=== PATIENT | male | born 1945 | race Caucasian/White ===

== ENCOUNTER 2021-05-24 20:11 | Inpatient (IN) | payer MEDICARE, OTHER ==
[~2021-05-24] VITALS: Ht 167.6 cm; Wt 64.6 kg
--- NOTE | 2021-05-24 20:15 | NUR ---
Pt BIB [facility] ambulance unit 265 from [facility] for c/o genaralized body pain since this AM, given norco at 1800 today. No SOB or labored breathing, afebrile. Denies CP/pressure. No GI/ distress. Estonian speaking.
--- NOTE | 2021-05-24 20:16 | NUR ---
Dr. Cordova at bedside, MSE in progress.
[2021-05-24 21:04] LABS: CREATININE 0.8 mg/dL (0.6-1.3); POTASSIUM 4.3 mmol/L (3.5-5.1)
[2021-05-24 21:24] LABS: BILIRUBIN,DIRECT 0.2 mg/dL (0.0-0.2); BILIRUBIN,TOTAL 0.5 mg/dL (0.2-1.0); TOTAL PROTEIN, SERUM 5.9 g/dL (6.4-8.2)
[2021-05-24] MEDS ORDERED: HALOPERIDOL LACTATE 5 MG/1 ML VIAL IM ONE (22:15)
[2021-05-24] MEDS ORDERED: LORAZEPAM 2 MG/1 ML VIAL IM ONE (22:15)
[2021-05-24] MEDS ORDERED: LORAZEPAM 2 MG/1 ML VIAL ONE (22:30)
[2021-05-24] MEDS ORDERED: HALOPERIDOL LACTATE 5 MG/1 ML VIAL ONE (22:30)
[2021-05-24] MEDS ORDERED: FURO20TA4 PO (23:11)
[2021-05-24] MEDS ORDERED: POTA20TA83 PO (23:11)
[2021-05-24] MEDS ORDERED: TAMS-3 PO (23:11)
[2021-05-24] MEDS ORDERED: TEMA15CA PO (23:11)
[2021-05-24] MEDS ORDERED: LISI40TA13 PO (23:11)
[2021-05-24] MEDS ORDERED: HYDR-3972 PO (23:11)
[2021-05-24] MEDS ORDERED: CARV12.52 PO (23:11)
[2021-05-24] MEDS ORDERED: APIX5TAB PO (23:11)
[2021-05-24] MEDS ORDERED: PANT40TA2 PO (23:11)
[2021-05-24] MEDS ORDERED: ZINC220T4 PO (23:11)
[2021-05-24] MEDS ORDERED: THIA100T13 PO (23:11)
[2021-05-24 23:44] LABS: HEMATOCRIT 28.2 % (36.7-47.1); MEAN CORPUSCULAR HEMOGLOBIN 24.2 uug (23.8-33.4); MEAN CORPUSCULAR VOLUME 81.3 fL (73.0-96.2); PLATELET COUNT (AUTO) 187 K/uL (152-348)
--- NOTE | 2021-05-24 23:52 | NUR ---
Patient is resting comfortably in bed with eyes closed. VSS. bed in lowest positiong for safety precautions.
--- NOTE | 2021-05-25 00:27 | NUR ---
PT TAKEN DOWN FOR CT.
--- NOTE | 2021-05-25 00:55 | NUR ---
PT RETURNED FROM CT, STABLE CONDITION.
[2021-05-25] MEDS ORDERED: FUROSEMIDE 40 MG/4 ML VIAL IV ONE (01:00)
[2021-05-25] MEDS ORDERED: FUROSEMIDE 40 MG/4 ML VIAL ONE (01:16)
[2021-05-25 01:31] LABS: *BILIRUBIN,URIN NEGATIVE (NEGATIVE); *CLARITY,URINE CLEAR (CLEAR); *COLOR,URINE YELLOW (YELLOW); *KETONES,URINE NEGATIVE (NEGATIVE); *UROBILINOGEN,URINE 0.2 E.U./dl (NORMAL); LEUKOCYTE ESTERASE ,URINE TRACE (NEGATIVE); NITRITE, URINE NEGATIVE (NEGATIVE); UGLUCOSE NEGATIVE (NEGATIVE)
[2021-05-25 01:33] LABS: *BLOOD, URINE TRACE (NEGATIVE)
[2021-05-25 01:34] LABS: BACTERIA,URINE NONE SEEN /HPF (NONE SEEN); RBC,URINE 0-3 /HPF (0-3); SQUAMOUS EPITHELIAL CELL,UR FEW /HPF (NONE SEEN); WBC,URINE 0-3 /HPF (0-3)
--- NOTE | 2021-05-25 02:47 | NUR ---
Patient is resting comfortably in bed with eyes closed. VSS. Breathing even and unlabored.
--- NOTE | 2021-05-25 03:39 | NUR ---
Gave report to raisa Nguyen going to room 301A.
--- NOTE | 2021-05-25 04:50 | NUR ---
Pt. admitted to tele room 301A , under care of Dr. Merchant Dx: CHF Belongs List completed
[2021-05-25 05:36] VITALS: BP 142/73
[2021-05-25] MEDS ORDERED: TEMAZEPAM 15 MG CAPSULE PO PRN (06:15)
[2021-05-25] MEDS ORDERED: ACETAMINOPHEN 325 MG TABLET PO PRN (06:15)
[2021-05-25] MEDS ORDERED: ONDANSETRON 4 MG/2 ML VIAL IV PRN (06:15)
--- NOTE | 2021-05-25 06:43 | NUR ---
Admitted to room 301A; IV not working; multiple unsuccessful attempts by ER staff in room; DR Osorio placed orders; order for Midline; wound care done; WCRN rozina ordered.
--- NOTE | 2021-05-25 08:00 | NUR ---
received asleep, name called , woke up but instantly closed eyes, no IV access at this time- will fiind out with supervisor transcribing operators ETA of midline nurse, on /- no distress noted, call light within reach, safety measures maintained
[2021-05-25] MEDS: POTASSIUM CHLORIDE 20 MEQ TAB.PRT.SR PO SCH ×2 (08:19→17:08)
[2021-05-25] MEDS: CARVEDILOL 12.5 MG TABLET PO SCH ×2 (08:19→17:09)
[2021-05-25] MEDS: LISINOPRIL 20 MG TABLET PO SCH (08:19)
[2021-05-25] MEDS: PANTOPRAZOLE SODIUM 40 MG TABLET.DR PO SCH (08:19)
[2021-05-25] MEDS: THIAMINE HCL 100 MG TABLET PO SCH (08:19)
[2021-05-25] MEDS: ZINC SULFATE 220 MG CAPSULE PO SCH (08:20)
[2021-05-25] MEDS: APIXABAN 5 MG TABLET PO SCH ×2 (08:21→17:09)
--- NOTE | 2021-05-25 08:30 | NUR ---
Dr Styles here. left groin wound with dsg- with drainage, left above knee amputee
[2021-05-25] MEDS ORDERED: VANCOMYCIN IV 750 MG in IV DEXTROSE 5% 250 ML IV SCH (10:00)
[2021-05-25] MEDS ORDERED: Z GUARD REMEDY PASTE 57 GM TUBE TOP PRN (10:15)
[2021-05-25] MEDS ORDERED: PIPERACILLIN SODIUM/TAZOBACTAM 3.375 G in IV DEXTROSE 5% 50 ML IV SCH (11:00)
--- NOTE | 2021-05-25 11:00 | NUR ---
midline nurse here and placed g20 midline on right upper arm
[2021-05-25] MEDS: FUROSEMIDE 40 MG/4 ML VIAL IV SCH (11:02)
[2021-05-25] MEDS: VANCOMYCIN IV 750 MG in IV DEXTROSE 5% 250 ML IV SCH ×2 (11:05→18:24)
--- NOTE | 2021-05-25 11:30 | NUR ---
called lab and inquired about labs ordered for this am- informed that pt refused blood draw, talked to pt and blood drawn for am labs
[2021-05-25 12:00] VITALS: BP 122/53
[2021-05-25 12:08] LABS: HEMATOCRIT 27.7 % (36.7-47.1); MEAN CORPUSCULAR HEMOGLOBIN 25.1 uug (23.8-33.4); MEAN CORPUSCULAR VOLUME 82.8 fL (73.0-96.2); PLATELET COUNT (AUTO) 173 K/uL (152-348)
[2021-05-25 12:11] LABS: CREATININE 0.8 mg/dL (0.6-1.3); POTASSIUM 3.6 mmol/L (3.5-5.1)
[2021-05-25] MEDS: PIPERACILLIN SODIUM/TAZOBACTAM 3.375 G in IV DEXTROSE 5% 50 ML IV SCH ×2 (12:20→17:11)
[2021-05-25 12:29] LABS: BILIRUBIN,TOTAL 0.6 mg/dL (0.2-1.0); MAGNESIUM 1.9 mg/dL (1.8-2.4); PHOSPHOROUS 3.3 mg/dL (2.5-4.9); TOTAL PROTEIN, SERUM 5.7 g/dL (6.4-8.2)
--- NOTE | 2021-05-25 13:00 | NUR ---
informed of trop0.040- orders given
[2021-05-25 14:11] LABS: THYROID STIMULATING HORMONE 10.457 mIU/mL (0.358-3.740)
[2021-05-25 16:00] VITALS: BP 135/49
--- NOTE | 2021-05-25 18:34 | NUR ---
visitor at bedside, no distress noted, on 2l 02, no shortness of breath noted, head of bed elevated, all needs attended and met, safety mesures maintained, call light within reach
[2021-05-25 20:00] VITALS: BP 121/50
[2021-05-25] MEDS: TAMSULOSIN HCL 0.4 MG CAP.SR.24H PO SCH (20:06)
--- NOTE | 2021-05-25 21:17 | NUR ---
Pt has an order for troponin STAT. Multiple attempts made to draw blood by lab and staff, unable to get blood sample. Pt keeps on refusing too. aware. will continue to monitor.
[2021-05-26] VITALS: BP 107/50
[2021-05-26] MEDS: PIPERACILLIN SODIUM/TAZOBACTAM 3.375 G in IV DEXTROSE 5% 50 ML IV SCH ×5 (00:05→23:45)
[2021-05-26] MEDS: TEMAZEPAM 15 MG CAPSULE PO PRN ×2 (00:20→21:37)
[2021-05-26] MEDS: VANCOMYCIN IV 750 MG in IV DEXTROSE 5% 250 ML IV SCH ×3 (03:00→18:06)
--- NOTE | 2021-05-26 03:42 | NUR ---
IV antibiotics not administered due to no IV access. Pt pulled his JUSTIN midline. Multiple attempts made to re-insert new IV access. Still unsuccessful. Pt keeps on refusing IV insertions as well. aware.
[2021-05-26 04:00] VITALS: BP 130/54
--- NOTE | 2021-05-26 06:38 | NUR ---
No signs of respiratory distress noted through the night. Tolerated oral medications. Repositioning done as needed. Pt still refusing IV insertions. Stool sample sent to Lab for stool OB. All needs attended and met.
--- NOTE | 2021-05-26 08:00 | NUR ---
asleep on rounds but arouses easily, on 2l/nc no shortness of breath noted, refused to eat and vs taken at this time, offered breakfast but states "out, out", safety measures maintained, call light within reach
[2021-05-26] MEDS: PANTOPRAZOLE SODIUM 40 MG TABLET.DR PO SCH (08:39)
[2021-05-26] MEDS: POTASSIUM CHLORIDE 20 MEQ TAB.PRT.SR PO SCH ×2 (08:39→17:35)
[2021-05-26] MEDS: THIAMINE HCL 100 MG TABLET PO SCH (08:39)
[2021-05-26] MEDS: ZINC SULFATE 220 MG CAPSULE PO SCH (08:39)
[2021-05-26] MEDS: APIXABAN 5 MG TABLET PO SCH ×2 (08:40→17:35)
--- NOTE | 2021-05-26 08:40 | NUR ---
convinced to take breakfast and meds - complied, still no IV access, lasix IV unable to give, awaiting for midline RN
[2021-05-26] MEDS: LISINOPRIL 20 MG TABLET PO SCH (08:44)
[2021-05-26] MEDS: CARVEDILOL 12.5 MG TABLET PO SCH ×2 (08:44→17:00)
--- NOTE | 2021-05-26 10:00 | NUR ---
called mails supervisor re midline- to let me know when he's coming
--- NOTE | 2021-05-26 11:00 | NUR ---
refused am lab draw
[2021-05-26 12:00] VITALS: BP 122/68
[2021-05-26 12:33] LABS: *OCCULT BLOOD STOOL NEGATIVE (NEGATIVE)
--- NOTE | 2021-05-26 14:30 | NUR ---
midline placed by midline RN on left upper arm G20, iv meds given thereafter
[2021-05-26] MEDS: FUROSEMIDE 40 MG/4 ML VIAL IV SCH (14:32)
[2021-05-26 17:20] VITALS: BP 99/56
--- NOTE | 2021-05-26 18:00 | NUR ---
iv zosyn ivpb not given- was administered at 1616- too close to give
--- NOTE | 2021-05-26 19:30 | NUR ---
Received pt in bed, awake and verbally responsive. On oxygen at 2LPM, no signs of respiratory distress. Denies any pain or discomfort. IV access on HALIMA midline, intact and patent. Repositioned comfortably in bed, safety measures initiated, call light within reach.
[2021-05-26] MEDS: TAMSULOSIN HCL 0.4 MG CAP.SR.24H PO SCH (20:21)
[2021-05-26 20:33] VITALS: BP 100/76
[2021-05-27 00:39] VITALS: BP 109/49
--- NOTE | 2021-05-27 01:19 | NUR ---
Pt pulled out his IV midline and has been refusing IV insertions. Removes his tele leads and gets agitated more when approached. Notified Dr. Merchant and received an order to hold IV abx tonight, let regular doctor decide in AM and to DC telemetry. will continue to monitor.
[2021-05-27] MEDS: HYDROCODONE/APAP 5-325MG TABLET PO PRN (02:02)
[2021-05-27] MEDS: VANCOMYCIN IV 750 MG in IV DEXTROSE 5% 250 ML IV SCH ×4 (03:00→23:09)
[2021-05-27 04:32] VITALS: BP 112/50
[2021-05-27] MEDS: PIPERACILLIN SODIUM/TAZOBACTAM 3.375 G in IV DEXTROSE 5% 50 ML IV SCH ×3 (06:00→18:00)
--- NOTE | 2021-05-27 06:18 | NUR ---
Pt slept intermittently, occasional screaming noted but able to console. Pt is a fall risk. Tries to get out of bed most of the time. Bed alarm on at all times, close monitoring done as needed. Notified Dr. Merchant and received an order of Zyprexa 2.5 mg IM but unable to administer due to pt being calmer now and currently asleep. Dr. Merchant is aware. Pt still with no IV access. Tolerated PO medications. All needs attended to and met.
[2021-05-27 06:43] LABS: HEMATOCRIT 24.3 % (36.7-47.1); MEAN CORPUSCULAR HEMOGLOBIN 25.2 uug (23.8-33.4); MEAN CORPUSCULAR VOLUME 82.5 fL (73.0-96.2); PLATELET COUNT (AUTO) 143 K/uL (152-348)
[2021-05-27 07:08] LABS: CREATININE 1.2 mg/dL (0.6-1.3); MAGNESIUM 1.9 mg/dL (1.8-2.4); PHOSPHOROUS 2.4 mg/dL (2.5-4.9); POTASSIUM 3.7 mmol/L (3.5-5.1)
--- NOTE | 2021-05-27 07:30 | NUR ---
Received report from VENICE Byrd. All questions, comments, and concerns were addressed. Received patient awake, alert and oriented to name only in his assigned bed. Bed is in low and locked position with bed alarm on. Patient on IVAN mattress. Respirations even and unlabored, no signs of respiratory distress noted.
[2021-05-27] MEDS: FUROSEMIDE 40 MG/4 ML VIAL IV SCH (09:00)
[2021-05-27] MEDS: APIXABAN 5 MG TABLET PO SCH ×2 (09:00→16:56)
[2021-05-27] MEDS: PANTOPRAZOLE SODIUM 40 MG TABLET.DR PO SCH (09:00)
[2021-05-27] MEDS: ZINC SULFATE 220 MG CAPSULE PO SCH (09:00)
[2021-05-27] MEDS: POTASSIUM CHLORIDE 20 MEQ TAB.PRT.SR PO SCH ×2 (09:00→16:56)
[2021-05-27] MEDS: THIAMINE HCL 100 MG TABLET PO SCH (09:00)
[2021-05-27] MEDS: LISINOPRIL 20 MG TABLET PO SCH (09:00)
[2021-05-27] MEDS: CARVEDILOL 12.5 MG TABLET PO SCH ×2 (09:00→16:56)
--- NOTE | 2021-05-27 11:23 | NUR ---
WOUND CARE CONSULT: PT PRESENTS WITH RASH TO SCROTUM, PERINEAL AREAS, RT CHEST AREA SUTURE AND LEFT GROIN PURULENT WOUNDS, PRESENT ON ADMISSION. SURGICAL CONSULT CALLED TO DR BARONE. RECOMMENDATIONS MADE FOR SKIN PROTECTION. DISCUSSED WITH NURSING STAFF. PT IS MOVING ABOUT IN BED. FIRST STEP LOW AIRLOSS MATTRESS DISCONTINUED FOR PT SAFETY. MD IN AGREEMENT WITH PLAN OF CARE.
[2021-05-27 12:00] VITALS: BP 92/58
--- NOTE | 2021-05-27 12:20 | NUR ---
Received Critical Lab result for Hemoglobin 7.4. Dr. Max Purvis [employer] notified, also notified that patient has orders for a midline catheter placement due to pulling out the previous one. Orders received for medical restraints after midline is placed. Currently, unable to administer scheduled IV ATB therapy due to patient being noncompliant. Patient has also been refusing all PO medications today. Patient states "no!" and waves his hand for this commercial underwriter to go away. Patient is noncompliant with treatment and is refusing to participate in education and reality orientation. Patient seen by wound nurse. IVAN mattress discontinued, diaper removed due to fungal rash in groin and recommended condom catheter, and orders placed for consult with surgical team for drainage coming from left thigh wound. Wound cleansed and covered with nonsterile gauze and tape. Patient noted with Left AKA, healed.
[2021-05-27 15:37] LABS: EOSINOPHILS % (MANUAL) 1 % (0-8); LYMPHOCYTES % (MANUAL) 3 % (20-40); MONOCYTES % (MANUAL) 7 % (2-10); NEUTROPHILS % (MANUAL) 89 % (42-75)
[2021-05-27 16:00] VITALS: BP 132/56
[2021-05-27] MEDS ORDERED: NEUTRA PHOS PACKET PO ONE (16:30)
--- NOTE | 2021-05-27 16:58 | NUR ---
Patient refusing scheduled PO medications. Patient provided with education about importance of medication adherence but patient refusing to participate in education. Screaming words in Colombian at this policy writer and is demanding, irritable, and angry.
[2021-05-27] MEDS: CLOTRIMAZOLE 1% CREAM 30 GM TUBE TOP SCH (17:30)
--- NOTE | 2021-05-27 18:40 | NUR ---
Condom catheter placed on patient to help with skin management and healing of fungal rash in groin area. Patient instructed not to remove and provided with education about reason for placement. Patient pulled condom catheter off x2. Screaming and yelling at staff. Patient is angry. Patient unable to participate in education due to confusion and disorientation.
[2021-05-27 19:48] VITALS: BP 181/74
[2021-05-27] MEDS: TAMSULOSIN HCL 0.4 MG CAP.SR.24H PO SCH (20:01)
--- NOTE | 2021-05-27 20:02 | NUR ---
Unable to administer IV meds due to no IV access. scenic arts supervisor to f/u with PICC/midline team. Patient also refusing PO meds at this time. Very restless and agitated, frequent reorientation provided.
[2021-05-27] MEDS ORDERED: VANCOMYCIN IV 750 MG in IV DEXTROSE 5% 250 ML IV SCH (20:45)
[2021-05-27] MEDS: TEMAZEPAM 15 MG CAPSULE PO PRN (20:46)
[2021-05-27 21:00] VITALS: BP 150/75
--- NOTE | 2021-05-27 21:35 | NUR ---
Patient was very agitated and noncompliant with condom catheter. Currently remains off. Patient willing to take restoril, effective in treatment. Patient is now resting peacefully.
--- NOTE | 2021-05-27 23:19 | NUR ---
RUE midline insertion successful.
[2021-05-28] MEDS: PIPERACILLIN SODIUM/TAZOBACTAM 3.375 G in IV DEXTROSE 5% 50 ML IV SCH ×3 (00:28→12:00)
--- NOTE | 2021-05-28 04:39 | NUR ---
Since midline insertion patient was compliant. Verbalized that he understood that he should not touch midline. Patient was supervised and frequently checked on, he was peaceful and asleep last night. This morning patient woke up very agitated and pulled out midline. No signs of adverse effects. Patient this morning was yelling and very combative, unable to even take vital signs. Condom catheter was pulled off as well. Diaper applied. Wound care performed to right groin.
[2021-05-28] MEDS: VANCOMYCIN IV 750 MG in IV DEXTROSE 5% 250 ML IV SCH (05:37)
[2021-05-28] MEDS: LEVOTHYROXINE SODIUM 50 MCG TABLET PO SCH (06:20)
[2021-05-28 06:28] LABS: HEMATOCRIT 26.9 % (36.7-47.1); MEAN CORPUSCULAR HEMOGLOBIN 25.3 uug (23.8-33.4); MEAN CORPUSCULAR VOLUME 82.4 fL (73.0-96.2); PLATELET COUNT (AUTO) 162 K/uL (152-348)
[2021-05-28 06:39] LABS: CREATININE 0.9 mg/dL (0.6-1.3); MAGNESIUM 1.9 mg/dL (1.8-2.4); PHOSPHOROUS 2.3 mg/dL (2.5-4.9); POTASSIUM 3.9 mmol/L (3.5-5.1)
[2021-05-28 08:00] VITALS: BP 116/88
[2021-05-28] MEDS: CARVEDILOL 12.5 MG TABLET PO SCH ×2 (09:00→16:56)
[2021-05-28] MEDS: FUROSEMIDE 40 MG/4 ML VIAL IV SCH (09:00)
[2021-05-28] MEDS: ZINC SULFATE 220 MG CAPSULE PO SCH (09:00)
[2021-05-28] MEDS: CLOTRIMAZOLE 1% CREAM 30 GM TUBE TOP SCH ×2 (09:00→16:51)
[2021-05-28] MEDS: APIXABAN 5 MG TABLET PO SCH ×2 (09:00→16:57)
[2021-05-28] MEDS: POTASSIUM CHLORIDE 20 MEQ TAB.PRT.SR PO SCH ×2 (09:00→16:57)
[2021-05-28] MEDS: LISINOPRIL 20 MG TABLET PO SCH (09:00)
[2021-05-28] MEDS: PANTOPRAZOLE SODIUM 40 MG TABLET.DR PO SCH (09:00)
[2021-05-28] MEDS: THIAMINE HCL 100 MG TABLET PO SCH (09:00)
--- NOTE | 2021-05-28 09:00 | NUR ---
Patient is noncompliant with medications. Refused to take meds. VS were taken. Denies pain. Dressing change to the groin done, Tolerated well. No respiratory distress noted. He does not want to put his oxygen on. On room air, 95% saturation. Will continue to monitor. Awaiting PICC line insertion.
[2021-05-28 11:23] VITALS: BP 125/65
[2021-05-28] MEDS: FUROSEMIDE 40 MG TABLET PO SCH (12:00)
[2021-05-28 15:38] VITALS: BP 144/76
[2021-05-28] MEDS ORDERED: NEUTRA PHOS PACKET PO ONE (17:30)
[2021-05-28 20:00] VITALS: BP 128/48
[2021-05-28] MEDS ORDERED: VANCOMYCIN IV 750 MG in IV DEXTROSE 5% 250 ML IV SCH (20:00)
[2021-05-28] MEDS: TAMSULOSIN HCL 0.4 MG CAP.SR.24H PO SCH (20:30)
[2021-05-28] MEDS: HYDROCODONE/APAP 5-325MG TABLET PO PRN (20:32)
--- NOTE | 2021-05-29 | NUR ---
Patient rested in between care; no acute distress; incontinence care done; safety maintained; needs attended. Addendum: 05/29/21 at 0139 by TANA KIRK RN report given to VENICE Garcia who will assume care.
[2021-05-29 05:10] VITALS: BP 125/64
--- NOTE | 2021-05-29 05:32 | NUR ---
HAD 2 HUGE BM FORMED,BROWN, CLEANED AND KEPT DRY. SLEPT ON AND OFF.
--- NOTE | 2021-05-29 05:58 | NUR ---
NPO OBSERVEDREVERSAL OF DNR FORM IN CHART,,
[2021-05-29 06:55] LABS: CREATININE 0.9 mg/dL (0.6-1.3); PHOSPHOROUS 2.9 mg/dL (2.5-4.9); POTASSIUM 4.1 mmol/L (3.5-5.1)
[2021-05-29] MEDS: LEVOTHYROXINE SODIUM 50 MCG TABLET PO SCH (07:57)
[2021-05-29] MEDS: LISINOPRIL 20 MG TABLET PO SCH (08:00)
[2021-05-29] MEDS: POTASSIUM CHLORIDE 20 MEQ TAB.PRT.SR PO SCH (08:00)
[2021-05-29] MEDS: FUROSEMIDE 40 MG TABLET PO SCH (08:00)
[2021-05-29] MEDS: PANTOPRAZOLE SODIUM 40 MG TABLET.DR PO SCH (08:00)
[2021-05-29] MEDS: CARVEDILOL 12.5 MG TABLET PO SCH (08:00)
[2021-05-29] MEDS: THIAMINE HCL 100 MG TABLET PO SCH (08:00)
[2021-05-29] MEDS: APIXABAN 5 MG TABLET PO SCH (08:00)
[2021-05-29] MEDS: CLOTRIMAZOLE 1% CREAM 30 GM TUBE TOP SCH (08:01)
[2021-05-29] MEDS: ZINC SULFATE 220 MG CAPSULE PO SCH (08:01)
[2021-05-29 10:56] VITALS: BP 140/59
[2021-05-29 14:39] VITALS: BP 145/81
--- NOTE | 2021-05-29 15:51 | NUR ---
dc orders received noted and carried out dc instruction given to the pt .pt do not have any belonging pt left the facility via ambulances in stable condition
== END 2021-05-29 16:00 | DRG 604 ==
LOC: ER 20:15 → TELE3 05-25 04:32 → MEDSURG3 05-27 04:08
PROVIDERS: ADMIT Family Medicine; ATTEND Nurse Practitioner Acute Care
PROC: 05H533Z Insertion of Infusion Device into Right Subclavian Vein, Percutaneous Approach (ICD-10-PCS; principal; 2021-05-25)
PROC: B546ZZA Ultrasonography of Right Subclavian Vein, Guidance (ICD-10-PCS; 2021-05-25)
PROC: 05H633Z Insertion of Infusion Device into Left Subclavian Vein, Percutaneous Approach (ICD-10-PCS; 2021-05-26)
PROC: B547ZZA Ultrasonography of Left Subclavian Vein, Guidance (ICD-10-PCS; 2021-05-26)
PROC: 05H533Z Insertion of Infusion Device into Right Subclavian Vein, Percutaneous Approach (ICD-10-PCS; 2021-05-27)
PROC: B546ZZA Ultrasonography of Right Subclavian Vein, Guidance (ICD-10-PCS; 2021-05-27)
DX: S31.104A Unspecified open wound of abdominal wall, left lower quadrant without penetration into peritoneal cavity, initial encounter (principal); E43 Unspecified severe protein-calorie malnutrition; N17.0 Acute kidney failure with tubular necrosis; J90 Pleural effusion, not elsewhere classified; I50.32 Chronic diastolic (congestive) heart failure; N40.0 Benign prostatic hyperplasia without lower urinary tract symptoms; E03.9 Hypothyroidism, unspecified; D63.8 Anemia in other chronic diseases classified elsewhere; E83.39 Other disorders of phosphorus metabolism; Z91.19 Patient's noncompliance with other medical treatment and regimen; Z95.1 Presence of aortocoronary bypass graft; Z79.01 Long term (current) use of anticoagulants; E83.51 Hypocalcemia; E88.09 Other disorders of plasma-protein metabolism, not elsewhere classified; M62.81 Muscle weakness (generalized); R74.8 Abnormal levels of other serum enzymes; Z68.23 Body mass index [BMI] 23.0-23.9, adult; Z20.822 Contact with and (suspected) exposure to COVID-19; D72.829 Elevated white blood cell count, unspecified; X58.XXXA Exposure to other specified factors, initial encounter; Y93.9 Activity, unspecified; Y92.129 Unspecified place in nursing home as the place of occurrence of the external cause
CPT/HCPCS: 36415; 70030-TC; 70450; 71045; 82378; 83550; 83735; 84100; 84443; 85025; 85730; 86850; 86900; 86901; 87070; 87086; 93005; A4663; C1758; G0378; J1630; J1940; J2060; J2543; J3370; J7050; J7060

== ENCOUNTER 2021-05-30 00:38 | Inpatient (IN) | payer MEDICARE, OTHER ==
[~2021-05-30] VITALS: Ht 172.7 cm; Wt 56.3 kg
[~2021-05-30 00:38] MED LIST: APIX5TAB PO; CARV12.52 PO; FURO20TA4 PO; HYDR-3972 PO; LISI40TA13 PO; PANT40TA2 PO; POTA20TA83 PO; TAMS-3 PO; TEMA15CA PO; THIA100T13 PO; ZINC220T4 PO
[2021-05-30] MEDS ORDERED: IV NORMAL SALINE 1000 ML BAG IV ONE (01:00)
[2021-05-30] MEDS ORDERED: VANCOMYCIN IV 1,000 MG in IV DEXTROSE 5% 250 ML IV ONE (01:00)
[2021-05-30] MEDS ORDERED: CEFEPIME HCL 1 G in IV DEXTROSE 5% 50 ML IV ONE (01:00)
[2021-05-30 01:20] LABS: HEMATOCRIT 24.7 % (36.7-47.1); MEAN CORPUSCULAR HEMOGLOBIN 24.6 uug (23.8-33.4); MEAN CORPUSCULAR VOLUME 80.7 fL (73.0-96.2); PLATELET COUNT (AUTO) 132 K/uL (152-348)
[2021-05-30] MEDS ORDERED: VANCOMYCIN IV 200 ML ONE ×2 (01:26→03:24)
[2021-05-30] MEDS ORDERED: CEFEPIME HCL 1 G VIAL ONE (01:26)
--- NOTE | 2021-05-30 01:30 | NUR ---
Pt bib ambulance from [facility] for fever and sob. Pt. a&ox1. Vss. Pt. recently discharge from [facility].
[2021-05-30 01:32] LABS: CREATININE 1.3 mg/dL (0.6-1.3); POTASSIUM 4.4 mmol/L (3.5-5.1)
[2021-05-30 01:44] LABS: BILIRUBIN,DIRECT 0.7 mg/dL (0.0-0.2); BILIRUBIN,TOTAL 1.5 mg/dL (0.2-1.0)
--- NOTE | 2021-05-30 02:00 | NUR ---
Pt. spo2 94-95% on 5 L nasal cannula.
[2021-05-30] MEDS ORDERED: FUROSEMIDE 40 MG/4 ML VIAL IV ONE ×2 (02:15→16:00)
[2021-05-30 02:38] LABS: ABG BASE EXCESS 3.2 mmol/L; ABG HCO3 27.7 mmol/L; ABG PCO2 41.7 mmHg (35.0-45.0); ABG PO2 131.2 mmHg (75.0-100.0); ABG SITE RIGHT BRACHIAL; ABG TOTAL HEMOGLOBIN 8.1 G/dL (13.5-18.0); COHb 2.1 % (0.5-1.5); MetHb 0.5 % (0.0-1.5); O2Hb 96.5 % (94.0-97.0); VENT MODE Nasal Cannula
--- NOTE | 2021-05-30 03:00 | NUR ---
Pt resting in bed with eyes closed. Vss. Will continue to monitor.
--- NOTE | 2021-05-30 03:00 | NUR ---
Pt to be admitted to tele per Dr. Desir for pneumonia and CHF exacerbation.
[2021-05-30] MEDS ORDERED: FUROSEMIDE 40 MG/4 ML VIAL ONE (03:11)
[2021-05-30] MEDS ORDERED: ACETAMINOPHEN 325 MG TABLET PO PRN (03:30)
[2021-05-30] MEDS ORDERED: ONDANSETRON 4 MG/2 ML VIAL IV PRN (03:30)
[2021-05-30] MEDS ORDERED: MAGNESIUM HYDROXIDE 30 ML LIQUID UDC PO PRN (03:30)
[2021-05-30] MEDS ORDERED: ENOXAPARIN SODIUM 40 MG/0.4 ML DISP.SYRIN SQ SCH (03:30)
[2021-05-30] MEDS ORDERED: Z GUARD REMEDY PASTE 57 GM TUBE TOP PRN (03:30)
[2021-05-30 03:52] LABS: *BILIRUBIN,URIN NEGATIVE (NEGATIVE); *BLOOD, URINE 1+ (NEGATIVE); *CLARITY,URINE HAZY (CLEAR); *COLOR,URINE YELLOW (YELLOW); *KETONES,URINE NEGATIVE (NEGATIVE); *UROBILINOGEN,URINE 0.2 E.U./dl (NORMAL); LEUKOCYTE ESTERASE ,URINE 1+ (NEGATIVE); NITRITE, URINE NEGATIVE (NEGATIVE); PH,URINE 6.5 (5.0-8.0); UGLUCOSE NEGATIVE (NEGATIVE)
[2021-05-30 03:59] LABS: BACTERIA,URINE FEW /HPF (NONE SEEN); RBC,URINE 0-3 /HPF (0-3); SQUAMOUS EPITHELIAL CELL,UR FEW /HPF (NONE SEEN); WBC,URINE 20-50 /HPF (0-3)
--- NOTE | 2021-05-30 04:30 | NUR ---
Pt. had a BM. Pt. cleaned up and changed. Vss. No signs of distress. Will continue to monitor.
[2021-05-30] MEDS ORDERED: ENOXAPARIN SODIUM 40 MG/0.4 ML DISP.SYRIN SQ ONE (04:45)
--- NOTE | 2021-05-30 06:04 | NUR ---
Gave report to VENICE Redd.
--- NOTE | 2021-05-30 07:30 | NUR ---
Patient transferred to room 329 A on tele unit, no facial cues of pain, no signs of distress noted, Isabell is accepting nurse
[2021-05-30] MEDS: PANTOPRAZOLE SODIUM 40 MG TABLET.DR PO SCH (08:58)
[2021-05-30 09:00] VITALS: BP 103/59
[2021-05-30] MEDS ORDERED: FUROSEMIDE 40 MG/4 ML VIAL IV SCH ×2 (09:00→12:00)
[2021-05-30] MEDS ORDERED: HYDROCODONE/APAP 5-325MG TABLET PO PRN (11:15)
[2021-05-30] MEDS ORDERED: LISINOPRIL 20 MG TABLET PO SCH (12:00)
[2021-05-30] MEDS ORDERED: LIDOCAINE HCL 1% 20 ML VIAL IJ PRN (13:00)
[2021-05-30] MEDS ORDERED: ALBUMIN HUMAN 25% 50 ML IV ONE (13:00)
[2021-05-30] MEDS: LISINOPRIL 20 MG TABLET PO SCH (15:00)
--- NOTE | 2021-05-30 15:00 | NUR ---
PT REFUSING ALL MEDICATION, PT TRIED SPITTING ON ME, PT HAS LYNNETTE SOF WRIST RESTRAINTS. PT PULLED OUT IV AND TRIED HITTING MIDLINE NURSE. WILL CONTINUE TO MONITOR CLOSELY.
[2021-05-30] MEDS: FUROSEMIDE 20 MG TABLET PO SCH ×2 (15:05→15:33)
[2021-05-30] MEDS: CARVEDILOL 12.5 MG TABLET PO SCH ×3 (15:05→17:00)
[2021-05-30] MEDS: CEFEPIME HCL 2 G in IV DEXTROSE 5% 100 ML IV SCH (15:06)
[2021-05-30] MEDS: THIAMINE HCL 100 MG TABLET PO SCH ×2 (15:06→15:33)
[2021-05-30] MEDS: HALOPERIDOL LACTATE 5 MG/1 ML VIAL IM PRN (15:06)
[2021-05-30 15:15] VITALS: BP 97/41
--- NOTE | 2021-05-30 15:34 | NUR ---
TRIED TO GIVE PT MEDICATIONS, PT UPSET AND COMBATIVE, PT TRIED SPITTING ON ME WHEN I PRESENTED THE MEDICATIONS.
[2021-05-30] MEDS: POTASSIUM CHLORIDE 20 MEQ TAB.PRT.SR PO SCH (17:00)
--- NOTE | 2021-05-30 19:30 | NUR ---
Patient report received. Upon assessment patient resting in bed. Confused and disoriented. No signs of distress at this time. Patient is uncooperative. Refuses vital signs and lab draws. Combative with nurses. Patient is now on soft restraints. On 3 L nasal cannula, saturating at 99%. Patient has a dennis, patent. Left AKA, and left groin puncture wound. Bed bound. Left upper arm midline. Bed in low and locked position. Fall and safety precautions in place. Will endorse to oncoming nurse.
[2021-05-30 20:25] VITALS: BP 102/44
[2021-05-30] MEDS: TAMSULOSIN HCL 0.4 MG CAP.SR.24H PO SCH (21:00)
[2021-05-30] MEDS: APIXABAN 5 MG TABLET PO SCH (21:41)
[2021-05-31] MEDS: CEFEPIME HCL 2 G in IV DEXTROSE 5% 100 ML IV SCH ×2 (00:48→14:05)
[2021-05-31] MEDS ORDERED: VANCOMYCIN IV 1,000 MG in IV DEXTROSE 5% 250 ML IV SCH (01:30)
[2021-05-31 04:25] VITALS: BP 101/41
[2021-05-31] MEDS: HALOPERIDOL LACTATE 5 MG/1 ML VIAL IM PRN (05:15)
[2021-05-31 06:21] LABS: HEMATOCRIT 27.5 % (36.7-47.1); MEAN CORPUSCULAR HEMOGLOBIN 24.3 uug (23.8-33.4); MEAN CORPUSCULAR VOLUME 79.6 fL (73.0-96.2); PLATELET COUNT (AUTO) 130 K/uL (152-348)
[2021-05-31] MEDS: PANTOPRAZOLE SODIUM 40 MG TABLET.DR PO SCH (06:48)
[2021-05-31 06:51] LABS: CREATININE 1.2 mg/dL (0.6-1.3); MAGNESIUM 2.1 mg/dL (1.8-2.4); PHOSPHOROUS 3.6 mg/dL (2.5-4.9); POTASSIUM 3.1 mmol/L (3.5-5.1)
[2021-05-31 07:00] LABS: THYROID STIMULATING HORMONE 10.778 mIU/mL (0.358-3.740)
[2021-05-31] MEDS ORDERED: PANTOPRAZOLE SODIUM 40 MG TABLET.DR PO SCH (07:00)
--- NOTE | 2021-05-31 08:42 | NUR ---
WOUND CARE: RECEIVED ANOTHER WOUND CONSULT FOR LEFT GROIN, HOWEVER SURGICAL TEAM IS ON CASE. DEFER TO SURGICAL TEAM FOR WOUND TREATMENT. PT NOTED TO BE VERY COMBATIVE AT THIS TIME. WILL SEE PRN ( PT CONDITION PERMITS).
[2021-05-31] MEDS: CARVEDILOL 12.5 MG TABLET PO SCH ×2 (08:50→17:00)
[2021-05-31] MEDS: POTASSIUM CHLORIDE 20 MEQ TAB.PRT.SR PO SCH ×2 (08:51→17:40)
[2021-05-31] MEDS: LISINOPRIL 20 MG TABLET PO SCH (08:51)
[2021-05-31] MEDS: APIXABAN 5 MG TABLET PO SCH ×2 (08:51→20:59)
[2021-05-31] MEDS: THIAMINE HCL 100 MG TABLET PO SCH (08:51)
[2021-05-31] MEDS: FUROSEMIDE 20 MG/2 ML VIAL IV SCH ×2 (08:52→20:47)
[2021-05-31] MEDS ORDERED: ENOXAPARIN SODIUM 40 MG/0.4 ML DISP.SYRIN SQ SCH (09:00)
[2021-05-31 11:00] VITALS: BP 133/52
[2021-05-31] MEDS: POTASSIUM CHLORIDE 50 ML IV SCH ×4 (11:11→19:14)
[2021-05-31 12:20] LABS: HEMATOCRIT 26.4 % (36.7-47.1)
[2021-05-31 15:36] VITALS: BP 105/46
--- NOTE | 2021-05-31 18:57 | NUR ---
Received patient is bed, awake and alert times 2. Some confusion can be noted. Patient is on room air. Patient has wound in the groin, Left upper arm midline. Safety precautions are in place. Will continue to monitor.
--- NOTE | 2021-05-31 19:30 | NUR ---
Received pt in bed, awake and verbally responsive, able to make needs known. On room air, no labored breathing noted. Denies any pain or discomfort. IV access intact and patent, Soriano cath draining well. Pt on bilateral soft wrist restraints. Safety measures initiated, call light within reach.
--- NOTE | 2021-05-31 19:44 | NUR ---
Patient left resting in bed no sign of distress noted. All medications given as ordered. Safety ,measures implemented. Will endorse to oncoming nurse.
[2021-05-31 20:23] VITALS: BP 125/52
[2021-05-31 20:34] LABS: HEMATOCRIT 28.8 % (36.7-47.1)
[2021-05-31] MEDS: TAMSULOSIN HCL 0.4 MG CAP.SR.24H PO SCH (20:49)
[2021-06-01 00:31] VITALS: BP 142/64
[2021-06-01] MEDS: CEFEPIME HCL 2 G in IV DEXTROSE 5% 100 ML IV SCH ×2 (01:01→13:17)
[2021-06-01] MEDS: TEMAZEPAM 15 MG CAPSULE PO PRN ×2 (02:16→20:50)
[2021-06-01] MEDS: LORAZEPAM 2 MG/1 ML VIAL IM PRN (02:33)
[2021-06-01 04:41] LABS: HEMATOCRIT 29.2 % (36.7-47.1)
[2021-06-01 04:47] VITALS: BP 141/64
[2021-06-01] MEDS: PANTOPRAZOLE SODIUM 40 MG TABLET.DR PO SCH (06:11)
--- NOTE | 2021-06-01 07:00 | NUR ---
Occasional screaming and agitation noted through the night, medication for agitation administered. Pt still awake the whole night. Refused protonix medication. Consent for thoracentesis not yet signed, will follow up with pt's in AM. Daily weight not taken due to broken bed scale. Will endorse to nurse to change pt's bed in AM. Safety measures maintained at all times, all needs attended to and met.
--- NOTE | 2021-06-01 08:00 | NUR ---
PT IN BED RESTING, PT A/OX1, L AKA, PT HAS LYNNETTE SOFT WRIST RESTRAINTS. PT HAS Carlos ARTEAGA ML, SCHEDULED FOR THORACENTESIS, WILL CALL TO OBTAIN CONSENT. PT IN ROOM AIR, SATURATING AT 93%, NO SIGNS OF DISTRESS, NO REPORTS OF PAIN AT THIS TIME, WILL CONTINUE TO MONITOR.
[2021-06-01 09:28] VITALS: BP 149/64
[2021-06-01] MEDS: CARVEDILOL 12.5 MG TABLET PO SCH ×2 (09:29→17:19)
[2021-06-01] MEDS: FUROSEMIDE 20 MG/2 ML VIAL IV SCH ×2 (09:29→20:48)
[2021-06-01] MEDS: POTASSIUM CHLORIDE 20 MEQ TAB.PRT.SR PO SCH ×2 (09:29→17:18)
[2021-06-01] MEDS: THIAMINE HCL 100 MG TABLET PO SCH (09:29)
[2021-06-01] MEDS: LISINOPRIL 20 MG TABLET PO SCH (09:30)
[2021-06-01] MEDS: LEVOTHYROXINE SODIUM 50 MCG TABLET PO SCH (09:42)
[2021-06-01] MEDS: APIXABAN 5 MG TABLET PO SCH ×2 (09:43→20:50)
[2021-06-01 11:51] LABS: CREATININE 1.3 mg/dL (0.6-1.3); POTASSIUM 3.6 mmol/L (3.5-5.1)
[2021-06-01 12:00] VITALS: BP 123/57
[2021-06-01 12:26] LABS: HEMATOCRIT 28.1 % (36.7-47.1)
--- NOTE | 2021-06-01 15:00 | NUR ---
CONSENT OBTAINED FOR THORACENTESIS FROM , PT UNABLE TO SIGNS, CALLED AND RECEIVED PHONE CONSENT, VERIFIED BY TWO RNS. WILL CONTACT US TO NOTIFY OF CONSENT.
[2021-06-01 16:00] VITALS: BP 112/64
--- NOTE | 2021-06-01 19:30 | NUR ---
Received pt in bed, awake and verbally responsive. Non labored breathing on room air. No pain or discomfort noted. IV access intact and patent, Soriano cath draining well. Pt on bilateral soft wrist restraints. Safety measures initiated, call light within reach.
[2021-06-01 20:00] VITALS: BP 142/63
[2021-06-01] MEDS ORDERED: VANCOMYCIN IV 1,000 MG in IV DEXTROSE 5% 250 ML IV ONE (20:15)
[2021-06-01] MEDS: TAMSULOSIN HCL 0.4 MG CAP.SR.24H PO SCH (20:49)
[2021-06-01] MEDS ORDERED: VANCOMYCIN IV 200 ML ONE (20:55)
[2021-06-01] MEDS ORDERED: MEROPENEM 500 MG VIAL IV ONE (20:55)
[2021-06-01] MEDS ORDERED: MEROPENEM 250 MG in IV NORMAL SALINE 50 ML IV SCH (21:00)
[2021-06-02] VITALS: BP 128/79
[2021-06-02 04:00] VITALS: BP 138/61
[2021-06-02] MEDS: LEVOTHYROXINE SODIUM 50 MCG TABLET PO SCH (06:10)
[2021-06-02] MEDS: PANTOPRAZOLE SODIUM 40 MG TABLET.DR PO SCH (06:10)
[2021-06-02 06:41] LABS: MEAN CORPUSCULAR HEMOGLOBIN 24.9 uug (23.8-33.4); MEAN CORPUSCULAR VOLUME 80.5 fL (73.0-96.2); PLATELET COUNT (AUTO) 140 K/uL (152-348)
--- NOTE | 2021-06-02 07:00 | NUR ---
Pt slept through the night, no signs of distress noted. Newly ordered IV abx administered and tolerated well. Soriano draining clear urine. Wound care done. Bed scale still broken, no weight taken. Will endorse to incoming nurse to change bed in AM.
[2021-06-02 07:10] LABS: CREATININE 1.2 mg/dL (0.6-1.3); MAGNESIUM 1.8 mg/dL (1.8-2.4); PHOSPHOROUS 2.8 mg/dL (2.5-4.9); POTASSIUM 3.9 mmol/L (3.5-5.1)
[2021-06-02] MEDS: CARVEDILOL 12.5 MG TABLET PO SCH ×2 (09:13→17:26)
[2021-06-02] MEDS: LISINOPRIL 20 MG TABLET PO SCH (09:13)
[2021-06-02] MEDS: THIAMINE HCL 100 MG TABLET PO SCH (09:13)
[2021-06-02] MEDS: POTASSIUM CHLORIDE 20 MEQ TAB.PRT.SR PO SCH ×2 (09:13→17:26)
[2021-06-02] MEDS: APIXABAN 5 MG TABLET PO SCH ×2 (09:14→21:33)
[2021-06-02] MEDS: FUROSEMIDE 20 MG/2 ML VIAL IV SCH ×2 (09:15→21:31)
[2021-06-02] MEDS: MEROPENEM 0.5 G in IV NORMAL SALINE 50 ML IV SCH ×3 (09:15→23:55)
[2021-06-02 12:00] VITALS: BP 119/52
[2021-06-02 16:00] VITALS: BP 113/56
[2021-06-02] MEDS: ENSURE ENLIVE (VAN) 240 ML LIQUID PO SCH (17:27)
[2021-06-02] MEDS ORDERED: VANCOMYCIN IV 1,000 MG in IV DEXTROSE 5% 250 ML IV SCH (18:00)
--- NOTE | 2021-06-02 19:30 | NUR ---
Received pt in bed, awake and verbally responsive. No signs of acute distress. No pain or discomfort noted. Bilateral soft wrist restraints on. Soriano draining well. Safety measures initiated, call light within reach.
[2021-06-02 20:18] VITALS: BP 114/75
[2021-06-02] MEDS: LINEZOLID 600 MG TABLET PO SCH (20:56)
--- NOTE | 2021-06-02 20:56 | NUR ---
Zyvox medication not available. Notified Dr. Merlyn Forbes. Will start medication tomorrow.
[2021-06-02] MEDS: TAMSULOSIN HCL 0.4 MG CAP.SR.24H PO SCH (21:33)
[2021-06-02] MEDS: TEMAZEPAM 15 MG CAPSULE PO PRN (21:34)
[2021-06-02] MEDS: NYSTATIN CREAM 30 GM TUBE TOP SCH (21:34)
[2021-06-03 04:18] VITALS: BP 114/51
[2021-06-03] MEDS: PANTOPRAZOLE SODIUM 40 MG TABLET.DR PO SCH (06:23)
[2021-06-03] MEDS: LEVOTHYROXINE SODIUM 50 MCG TABLET PO SCH (06:23)
--- NOTE | 2021-06-03 06:34 | NUR ---
Slept intermittently through the night with noted aggressiveness this morning when approached. Kicks with right leg and spits. Difficult to console but calms down eventually. Frequent repositioning done for comfort. Hygiene provided. Tolerated night medications well but refused morning meds. Wound dressing done. Safety measures maintained at all times. Bilateral wrist restraints on. Scheduled for US guided Thoracentesis today. will endorse to incoming nurse.
--- NOTE | 2021-06-03 08:00 | NUR ---
RECEIVED PATIENT IN BED AWAKE ALERT TO NAME AND MAKES GOOD EYE CONTACT ATTEMPTS TO RESPOND WHEN SPOKEN TO BUT SPEAKS IN OTHER LANGUAGE ALL NEEDS ANTICIPATED AND SATISFIED .ON ROOM AIR WITH SATS AT 92-93 PERCENT AT THIS TIME.HE HAS BILATERAL WRIST RESTRAINTS PATIENT HAS TENDENCY TO PULL OUT TUBES CIRCULATION CHECKED AND RELEASED Q2H MIDLINE REMAINS INTACT ARTEAGA CATH TO GRAVITY DRAINAGE WITH NO HEMATURIA WILL CONTINUE TO OBSERVE.
[2021-06-03] MEDS: POTASSIUM CHLORIDE 20 MEQ TAB.PRT.SR PO SCH ×2 (09:12→17:43)
[2021-06-03] MEDS: THIAMINE HCL 100 MG TABLET PO SCH (09:12)
[2021-06-03] MEDS: LINEZOLID 600 MG TABLET PO SCH ×2 (09:13→20:39)
[2021-06-03] MEDS: NYSTATIN CREAM 30 GM TUBE TOP SCH ×2 (09:13→20:39)
[2021-06-03] MEDS: FUROSEMIDE 20 MG/2 ML VIAL IV SCH (09:16)
[2021-06-03] MEDS: MEROPENEM 0.5 G in IV NORMAL SALINE 50 ML IV SCH ×2 (09:16→16:29)
[2021-06-03] MEDS: CARVEDILOL 12.5 MG TABLET PO SCH ×2 (09:16→17:00)
[2021-06-03] MEDS: LISINOPRIL 20 MG TABLET PO SCH (09:16)
[2021-06-03] MEDS: ENSURE ENLIVE (VAN) 240 ML LIQUID PO SCH ×2 (09:17→17:44)
[2021-06-03] MEDS: APIXABAN 5 MG TABLET PO SCH ×2 (09:20→20:39)
--- NOTE | 2021-06-03 11:25 | NUR ---
PATIENT SEEN AND EXAMINED BY DR NEFF WITH NEW ORDERS AND NOTED.HE IS CURRENTLY ON ROOM AIR WITH SATS AT 93-94 REMOVES O2 CANULA WHEN REAPPLIED.DR NEFF IS AWARE.
[2021-06-03 11:32] VITALS: BP 112/61
[2021-06-03] MEDS: LORAZEPAM 2 MG/1 ML VIAL IM PRN ×2 (14:04→22:08)
--- NOTE | 2021-06-03 14:07 | NUR ---
PER THE ULTRA SOUND TECH PATIENT WILL HAVE THORACENTESIS BEFORE AND HOUR AND STATED TO GIVE PATIENT SOME MEDICATIONS TO CALM HIM DOWN PATIENT IS AGGRESSIVE BELIGERENT AND PULLING OUT ALL AND ANY TUBE THAT HE CAN REACH HE IS ON BILATERAL WRIST RESTRAINT AT THIS TIME FOR HIS SAFETY ATIVAN GIVEN ORDERED MADE COMFORTABLE WILL CONTINUE TO OBSERVE.
--- NOTE | 2021-06-03 15:11 | NUR ---
Pt combative and spitting. Fina Iniguez gave pt ativan and still moving not compliant. Will try thoracentesis tmrw AM with DR baker.
[2021-06-03 15:15] VITALS: BP 99/66
--- NOTE | 2021-06-03 15:30 | NUR ---
THE ULTRA SOUND TECH HERE AND STATED THAT THE RADIOLOGIST IS NOT ABLE TO DO THE THORACENTHESIS ORDERED WILL LIKELY BE TOMORROW AND STATED THAT HE WILL CALL TO NOTIFY US TO WHAT TIME PATIENT IS STILL AWAKE RESTLESS KICKING GRABBING LYNNETTE WRIST RESTRAINTS IN PLACE RELEASED FOR ADEQUATE CIRCULATION WILL CONTINHUE TO OBSERVE.
--- NOTE | 2021-06-03 18:00 | NUR ---
NOTED THAT PATIENT STILL HAS DRAINAGE FROM HIS RIGHT GROIN SEROUS SANGIONOUS DRAINAGE SATURATED PREVIOUS DRESSING THAT IS ON CHANGED WITH DRY DRESSING INCLUDING ABD WITH PRESSURE DRESSING MADE COMFORTABLE WILL OBSERVE IV ANTIBIOTICS REMAIN IN PROGRESS ORDERED WITH NO ADVERSE OR ALLERGIC REACTIONS AT THIS TIME.REMAIN CONFUSED AND DISORIENTED VERY AGGRESSIVE.
[2021-06-03 20:00] VITALS: BP 111/54
[2021-06-03] MEDS: TAMSULOSIN HCL 0.4 MG CAP.SR.24H PO SCH (20:39)
[2021-06-04] VITALS: BP 147/72
[2021-06-04] MEDS: MEROPENEM 0.5 G in IV NORMAL SALINE 50 ML IV SCH ×4 (00:38→23:34)
[2021-06-04 04:00] VITALS: BP 139/63
[2021-06-04] MEDS: PANTOPRAZOLE SODIUM 40 MG TABLET.DR PO SCH (06:22)
[2021-06-04] MEDS: LEVOTHYROXINE SODIUM 50 MCG TABLET PO SCH (06:23)
[2021-06-04 07:15] LABS: MEAN CORPUSCULAR HEMOGLOBIN 24.5 uug (23.8-33.4); MEAN CORPUSCULAR VOLUME 78.7 fL (73.0-96.2); PLATELET COUNT (AUTO) 176 K/uL (152-348)
--- NOTE | 2021-06-04 07:30 | NUR ---
Awake, confused, Tunisian speaking, responsive to verbal and painful stimuli. Bilateral soft wrist restraints on, monitored per protocol.
[2021-06-04 07:33] LABS: CREATININE 0.9 mg/dL (0.6-1.3); PHOSPHOROUS 2.7 mg/dL (2.5-4.9); POTASSIUM 3.5 mmol/L (3.5-5.1)
[2021-06-04 08:00] VITALS: BP 139/55
[2021-06-04] MEDS: POTASSIUM CHLORIDE 20 MEQ TAB.PRT.SR PO SCH ×2 (08:50→17:56)
[2021-06-04] MEDS: LINEZOLID 600 MG TABLET PO SCH ×2 (08:50→21:44)
[2021-06-04] MEDS: THIAMINE HCL 100 MG TABLET PO SCH (08:50)
[2021-06-04] MEDS: APIXABAN 5 MG TABLET PO SCH ×2 (08:51→21:49)
[2021-06-04] MEDS: NYSTATIN CREAM 30 GM TUBE TOP SCH ×2 (08:53→21:44)
[2021-06-04] MEDS: ENSURE ENLIVE (VAN) 240 ML LIQUID PO SCH ×2 (08:53→17:57)
[2021-06-04] MEDS: FUROSEMIDE 40 MG TABLET PO SCH (08:54)
[2021-06-04] MEDS: LORAZEPAM 2 MG/1 ML VIAL IV PRN (08:55)
[2021-06-04] MEDS: LISINOPRIL 20 MG TABLET PO SCH (08:55)
[2021-06-04] MEDS: CARVEDILOL 12.5 MG TABLET PO SCH ×2 (08:56→17:58)
--- NOTE | 2021-06-04 10:00 | NUR ---
Thoracentesis done with 960 output. Specimen sent to lab. CXR ordered. Vital signs taken and recorded. Patient repositioned comfortably
--- NOTE | 2021-06-04 11:09 | NUR ---
Sleeping. Endorsed for further care
--- NOTE | 2021-06-04 12:21 | NUR ---
IN BED AWAKE CONFUSED AND DISORIENTED ALL NEEDS ANTICIPATED AND SATISFIED CONTINUE TO REQUIRE BILATERAL SOFT WRIST RESTRAINTS FOR SAFETY CONTINUES TO TUGG AND PULL ON ANYTHING THAT HE COULD REACH ADEQUATE CIRCULATION ENSURED BY RELEASING THE RESTRAINTS Q2H.NO SON AT THIS TIME DR NEFF HERE TO SEE PATIENT WITH NO NEW ORDERS AT THIS TIME WILL CONTINUE TO OBSERVE.
[2021-06-04 16:00] VITALS: BP 135/61
--- NOTE | 2021-06-04 18:00 | NUR ---
PATIENT HAS EPISODES OF BEING AGITATED AND RESTLESS BUT NOT SUSTAINED WAS EASILY REDIRECTED SPOON FED DINNER AND ATE 75 PERCENT AND TOLERATED ENSURE ORDERED CONTINUE TO NEED BILATERAL WRIST RESTRAINTS ORDERED RELEASED Q2H.WILL CONTINUE TO OBSERVE
[2021-06-04 20:55] VITALS: BP 108/78
[2021-06-04] MEDS: TAMSULOSIN HCL 0.4 MG CAP.SR.24H PO SCH (21:43)
[2021-06-05] MEDS: TEMAZEPAM 15 MG CAPSULE PO PRN (00:14)
[2021-06-05 04:00] VITALS: BP 108/43
[2021-06-05] MEDS: LEVOTHYROXINE SODIUM 50 MCG TABLET PO SCH (06:19)
[2021-06-05] MEDS: PANTOPRAZOLE SODIUM 40 MG TABLET.DR PO SCH (06:19)
--- NOTE | 2021-06-05 07:44 | NUR ---
Received pt in bed, sleeping but arousable to light touch. No signs of acute distress. On oxygen at 2LPM. IV access intact and patent. Soriano draining well. Safety measures initiated, call light within reach. Bilateral restraints on. Addendum: 06/05/21 at 0746 by NADIRA AN RN Wrong time documented. Received pt on 06/04/21 at 1930.
[2021-06-05] MEDS: MEROPENEM 0.5 G in IV NORMAL SALINE 50 ML IV SCH ×3 (08:00→16:38)
--- NOTE | 2021-06-05 08:50 | NUR ---
awake but confused, left upper midline not working- occluded, iv abx cannot be given at this time, repositioned and assisted with meal by MUSICAL STRING MAKER, had a laarge bm after and was changed, soft wrist restraints on bilateral- checked circulation- hands warm to touch and able to move them well
[2021-06-05] MEDS: ENSURE ENLIVE (VAN) 240 ML LIQUID PO SCH ×2 (08:51→16:48)
[2021-06-05] MEDS: CARVEDILOL 12.5 MG TABLET PO SCH ×2 (09:00→16:48)
[2021-06-05] MEDS: LISINOPRIL 20 MG TABLET PO SCH (09:00)
[2021-06-05] MEDS: THIAMINE HCL 100 MG TABLET PO SCH (09:33)
[2021-06-05] MEDS: APIXABAN 5 MG TABLET PO SCH ×2 (09:34→20:48)
[2021-06-05] MEDS: FUROSEMIDE 40 MG TABLET PO SCH (09:35)
[2021-06-05] MEDS: POTASSIUM CHLORIDE 20 MEQ TAB.PRT.SR PO SCH ×2 (09:35→16:48)
[2021-06-05] MEDS: NYSTATIN CREAM 30 GM TUBE TOP SCH ×2 (09:42→20:41)
[2021-06-05] MEDS: LINEZOLID 600 MG TABLET PO SCH ×2 (10:54→20:41)
[2021-06-05 11:25] VITALS: BP 99/47
--- NOTE | 2021-06-05 13:00 | NUR ---
still awaiting for midline RN, pt awake intermittently
[2021-06-05 15:57] VITALS: BP 119/57
--- NOTE | 2021-06-05 16:00 | NUR ---
midline nurse here- placed #18 on right upper arm
--- NOTE | 2021-06-05 17:53 | NUR ---
no distress noted, all needs attended and met, safety measures in place
[2021-06-05 20:20] VITALS: BP 132/55
[2021-06-05] MEDS: TAMSULOSIN HCL 0.4 MG CAP.SR.24H PO SCH (20:40)
[2021-06-06] MEDS: MEROPENEM 0.5 G in IV NORMAL SALINE 50 ML IV SCH ×3 (00:42→16:08)
[2021-06-06] MEDS: LORAZEPAM 2 MG/1 ML VIAL IV PRN (01:01)
[2021-06-06 04:06] LABS: HEPATITIS A AB, TOTAL Positive (Negative)
[2021-06-06 04:36] VITALS: BP 122/60
--- NOTE | 2021-06-06 05:03 | NUR ---
Pt slept intermittently throughout the night. Very anxious. Given Ativan, tolerated well. In bilateral soft wrist restraints, offered water and snacks. Circulation assessed. No distress noted. Safety and comfort provided. No other issues or concerns at this time, will endorse to day shift.
[2021-06-06] MEDS: LEVOTHYROXINE SODIUM 50 MCG TABLET PO SCH (06:19)
[2021-06-06] MEDS: PANTOPRAZOLE SODIUM 40 MG TABLET.DR PO SCH (06:19)
[2021-06-06 06:29] LABS: HEMATOCRIT 25.5 % (36.7-47.1); MEAN CORPUSCULAR HEMOGLOBIN 24.5 uug (23.8-33.4); MEAN CORPUSCULAR VOLUME 79.4 fL (73.0-96.2); PLATELET COUNT (AUTO) 167 K/uL (152-348)
[2021-06-06 06:54] LABS: BILIRUBIN,TOTAL 0.7 mg/dL (0.2-1.0); CREATININE 1.1 mg/dL (0.6-1.3); MAGNESIUM 2.4 mg/dL (1.8-2.4); PHOSPHOROUS 2.8 mg/dL (2.5-4.9); POTASSIUM 4.5 mmol/L (3.5-5.1); TOTAL PROTEIN, SERUM 6.5 g/dL (6.4-8.2)
--- NOTE | 2021-06-06 08:00 | NUR ---
awake, alert but confused, speaks Ecuadorean, soft wrists restraints on bilaterally, on room air, no shortness of breath noted, repositioned and assisted with meals- very good appetite, safety measures in place
[2021-06-06] MEDS: ENSURE ENLIVE (VAN) 240 ML LIQUID PO SCH ×2 (08:12→17:44)
[2021-06-06] MEDS: FUROSEMIDE 40 MG TABLET PO SCH (08:13)
[2021-06-06] MEDS: POTASSIUM CHLORIDE 20 MEQ TAB.PRT.SR PO SCH ×2 (08:13→17:43)
[2021-06-06] MEDS: THIAMINE HCL 100 MG TABLET PO SCH (08:13)
[2021-06-06] MEDS: APIXABAN 5 MG TABLET PO SCH (08:13)
[2021-06-06] MEDS: LISINOPRIL 20 MG TABLET PO SCH (08:14)
[2021-06-06] MEDS: CARVEDILOL 12.5 MG TABLET PO SCH ×2 (08:14→17:44)
[2021-06-06] MEDS: NYSTATIN CREAM 30 GM TUBE TOP SCH (08:19)
[2021-06-06] MEDS: LINEZOLID 600 MG TABLET PO SCH (09:12)
[2021-06-06] MEDS ORDERED: SOD FERRIC GLUC COMPLX/SUCROSE 125 MG in IV NORMAL SALINE 100 ML IV ONE (11:00)
[2021-06-06 11:02] VITALS: BP 110/45
--- NOTE | 2021-06-06 12:00 | NUR ---
had BM- cleaned and kept dry, left groin dsg changed since pt took it out, needs attended and met
[2021-06-06 15:03] VITALS: BP 105/58
[2021-06-06] MEDS ORDERED: Lactose-Free Food PO (15:24)
[2021-06-06] MEDS ORDERED: MERO500P IV (15:24)
[2021-06-06] MEDS ORDERED: LEVO50TA8 PO (15:24)
[2021-06-06] MEDS ORDERED: ACET325T53 PO (15:24)
[2021-06-06] MEDS ORDERED: MENT71OI TOP (15:24)
[2021-06-06] MEDS ORDERED: ACID1TAB4 PO (15:24)
[2021-06-06] MEDS ORDERED: APIX2.5T PO (15:24)
[2021-06-06] MEDS ORDERED: NYST15CR TOP (15:24)
[2021-06-06] MEDS ORDERED: HALO5VIA9 IM (15:24)
[2021-06-06] MEDS ORDERED: LINE600T12 PO (15:24)
[2021-06-06] MEDS ORDERED: LISI20TA30 PO (15:24)
[2021-06-06 16:25] LABS: IRON, SERUM 21 ug/dL (50-175)
--- NOTE | 2021-06-06 18:30 | NUR ---
pt being D/CD to [facility]- report given- to be picked up by ambulance at 1930, no distress noted, all needs attended and met.
--- NOTE | 2021-06-06 20:00 | NUR ---
PATIENT PICKED UP BY AMBULANCE TO TRANSPORT BACK TO [facility]. PATIENT LEFT FACILITY IN STABLE CONDITION. VSS UPON DISCHARGE. ALL NEEDS ATTENDED.
[2021-06-06 20:01] VITALS: BP 108/48
== END 2021-06-06 20:00 | DRG 871 ==
LOC: ER 00:43 → TELE3 06:56 → MEDSURG3 06-02 15:15
PROVIDERS: ADMIT Internal Medicine; ATTEND Student in an Organized Health Care Education/Training Program
PROC: 05H633Z Insertion of Infusion Device into Left Subclavian Vein, Percutaneous Approach (ICD-10-PCS; principal; 2021-05-30)
PROC: B547ZZA Ultrasonography of Left Subclavian Vein, Guidance (ICD-10-PCS; 2021-05-30)
PROC: 05H533Z Insertion of Infusion Device into Right Subclavian Vein, Percutaneous Approach (ICD-10-PCS; 2021-06-05)
PROC: B546ZZA Ultrasonography of Right Subclavian Vein, Guidance (ICD-10-PCS; 2021-06-05)
PROC: 0W9B3ZZ Drainage of Left Pleural Cavity, Percutaneous Approach (ICD-10-PCS; 2021-06-05)
DX: A41.9 Sepsis, unspecified organism (principal); J96.21 Acute and chronic respiratory failure with hypoxia; E43 Unspecified severe protein-calorie malnutrition; R53.2 Functional quadriplegia; N17.0 Acute kidney failure with tubular necrosis; I21.4 Non-ST elevation (NSTEMI) myocardial infarction; I50.41 Acute combined systolic (congestive) and diastolic (congestive) heart failure; D68.59 Other primary thrombophilia; E87.0 Hyperosmolality and hypernatremia; F01.51 Vascular dementia, unspecified severity, with behavioral disturbance; G93.40 Encephalopathy, unspecified; N13.30 Unspecified hydronephrosis; Z68.1 Body mass index [BMI] 19.9 or less, adult; J91.8 Pleural effusion in other conditions classified elsewhere; I25.10 Atherosclerotic heart disease of native coronary artery without angina pectoris; Z89.612 Acquired absence of left leg above knee; Z95.1 Presence of aortocoronary bypass graft; I11.0 Hypertensive heart disease with heart failure; R65.20 Severe sepsis without septic shock; D64.9 Anemia, unspecified; D69.6 Thrombocytopenia, unspecified; E03.9 Hypothyroidism, unspecified; I48.0 Paroxysmal atrial fibrillation; Z20.822 Contact with and (suspected) exposure to COVID-19; Z86.73 Personal history of transient ischemic attack (TIA), and cerebral infarction without residual deficits; Z87.891 Personal history of nicotine dependence; Z79.01 Long term (current) use of anticoagulants; I95.9 Hypotension, unspecified; S31.104A Unspecified open wound of abdominal wall, left lower quadrant without penetration into peritoneal cavity, initial encounter; X58.XXXA Exposure to other specified factors, initial encounter; Y93.9 Activity, unspecified; Y92.129 Unspecified place in nursing home as the place of occurrence of the external cause; I73.9 Peripheral vascular disease, unspecified; I07.1 Rheumatic tricuspid insufficiency; R73.9 Hyperglycemia, unspecified; H70.90 Unspecified mastoiditis, unspecified ear; N40.0 Benign prostatic hyperplasia without lower urinary tract symptoms; N28.1 Cyst of kidney, acquired
CPT/HCPCS: 32555; 36415; 36600; 51702; 70030-TC; 71045; 71250; 76604; 76770; 83550; 83605; 83615; 83735; 83986; 84100; 84155; 84443; 84481; 85018; 85025; 85730; 86708; 86803; 86850; 86900; 86901; 87040; 87070; 87077; 87086; 87205; 87400; 87536; 87806; 93005; 93307; A4663; G0378; J0692; J1630; J1650; J1940; J2060; J2185; J2916; J3370; J3480; J3490; J7040; J7060; P9047